=== PATIENT | female | born 1985 | race Caucasian/White ===

== ENCOUNTER 2021-04-13 20:19 | Emergency (ER) | payer MEDICAID, OTHER ==
[~2021-04-13] VITALS: Ht 175.2 cm; Wt 113.3 kg
[2021-04-13 21:04] LABS: BASOPHILS # (AUTO) 0.1 10^3/uL (0.0-0.1); BASOPHILS % (AUTO) 1 % (0-10); EOSINOPHILS # (AUTO) 0.4 10^3/uL (0.0-0.3); EOSINOPHILS % (AUTO) 4 % (0-10); HEMATOCRIT 38 % (35-52); HEMOGLOBIN 12.9 g/dL (11.5-16.0); LYMPHOCYTES % (AUTO) 31 % (12-44); MEAN CORPUSCULAR HEMOGLOBIN 32 pg (25-34); MEAN CORPUSCULAR HGB CONC 34 g/dL (32-36); MEAN CORPUSCULAR VOLUME 92 fL (80-99); MEAN PLATELET VOLUME 10.2 fL (9.0-12.2); MONOCYTES # (AUTO) 0.5 10^3/uL (0.0-1.0); MONOCYTES % (AUTO) 6 % (0-12); NEUTROPHILS # (AUTO) 5.6 10^3/uL (1.8-7.8); NEUTROPHILS % (AUTO) 58 % (42-75); PLATELET COUNT 248 10^3/uL (130-400); WHITE BLOOD COUNT 9.7 10^3/uL (4.3-11.0)
--- NOTE | 2021-04-13 21:21 | Diagnostic Imaging Report ---
EXAM: chest 1 view, AP/PA only. INDICATION: Shortness of breath. COMPARISON: Chest radiograph 06/05/2018. FINDINGS: Normal heart size and pulmonary vascularity. No dense consolidation, pleural effusion or pneumothorax. No acute osseous findings. IMPRESSION: Negative chest. Dictated by: Dictated on workstation # [id number]
[2021-04-13 21:24] LABS: ALANINE AMINOTRANSFERASE 40 U/L (0-55); ALBUMIN 4.1 GM/DL (3.2-4.5); ALKALINE PHOSPHATASE 154 U/L (40-136); BILIRUBIN,TOTAL 0.6 MG/DL (0.1-1.0); BUN/CREATININE RATIO 11; CALCIUM 9.4 MG/DL (8.5-10.1); CARBON DIOXIDE 25 MMOL/L (21-32); CHLORIDE 102 MMOL/L (98-107); CREATININE SERUM 0.79 MG/DL (0.60-1.30); GFR ESTIMATED > 60; GLUCOSE 102 MG/DL (70-105); POTASSIUM 3.2 MMOL/L (3.6-5.0); SODIUM 137 MMOL/L (135-145); TOTAL PROTEIN 7.5 GM/DL (6.4-8.2)
--- NOTE | 2021-04-13 21:26 | ED Cough/URI ---
General Chief Complaint: Cough/Cold/Flu Symptoms Stated Complaint: COUGH, CHILLS, SORE THROAT, HEADACHE Nursing Triage Note: HAD LAST COVID VACCINATION ON APRIL 04, DEVELOPED A "BASEBALL SIZED REDDEND, HARD AREA" WHERE THE SHOT WAS ADMINISTERED. SAUGHT TREATMENT FOR THE SECONDARY S/SX OF THE COVID VACCINE AND WAS PUT ON BACTRIM AND ENCOURAGED TO USE TYLENOL AND IBUPROFEN FOR BODY ACHES/PAIN. TODAY PATIENT STATES SHE IS JUST FEELING WORSE AND CPMTOMUES TP BE SHORT OF BREATH WITH ACTIVITY. SHE DENIES FEVERS OR CHILLS. Sepsis Screen: No Definite Risk Source: patient Exam Limitations: no limitations History of Present Illness Date Seen by Provider: Apr 13, 2021 Time Seen by Provider: 21:00 Initial Comments To ER with reports of a cough chills sore throat headache since receiving her second Covid vaccine 8 days ago. She had a significant erythematous nodule to the left deltoid where the vaccine was injected afterwards so she was placed on Bactrim. Timing/Duration: constant Severity/Quality: moderate Associated Symptoms: cough, shortness of breath Allergies and Home Medications Allergies Coded Allergies: cefaclor (Verified Allergy, Unknown, 04/13/21) cinnamon (Verified Allergy, Unknown, 04/13/21) levofloxacin (Verified Allergy, Unknown, 04/13/21) varenicline (Verified Allergy, Unknown, 04/13/21) Patient Home Medication List Home Medication List Reviewed: Yes Review of Systems Review of Systems Constitutional: see HPI EENTM: see HPI Respiratory: no symptoms reported Cardiovascular: no symptoms reported Genitourinary: no symptoms reported Musculoskeletal: no symptoms reported Skin: no symptoms reported Psychiatric/Neurological: No Symptoms Reported Hematologic/Lymphatic: No Symptoms Reported Past Dozbuqu-Lyaeji-Jjtavf Hx Patient Social History Alcohol Use: Denies Use Type Used: Cigarettes Recent Infectious Disease Expo: No Recent Hopitalizations: No Immunizations Up To Date Tetanus Booster (TDap): Less than 5yrs PED Vaccines UTD: Yes Seasonal Allergies Seasonal Allergies: No Past Medical History Surgeries: Yes (CARPEL TUNNEL R WRIST, SPINE X3, LUNG SCRAPPED /C FLUID REMOVED.) Appendectomy, Gallbladder, Hysterectomy, Orthopedic, Tubal Ligation Respiratory: Yes Asthma Currently Using CPAP: No Currently Using BIPAP: No Cardiac: No Neurological: No : No [employer] History: Hysterectomy, Tubal Ligation Genitourinary: No Gastrointestinal: No Musculoskeletal: Yes Degenerate Disk Disease, Chronic Back Pain Hypothyroidsim HEENT: No Cancer: No Psychosocial: Yes Anxiety, PTSD, Depression Blood Disorders: No Physical Exam Vital Signs - First Documented 04/13/21 20:35 Temp 36.9 Pulse 120 Resp 20 B/P (MAP) 159/97 (117) Pulse Ox 99 O2 Delivery Room Air Capillary Refill : Less Than 3 Seconds Height: '" Weight: lbs. oz. kg; 36.00 BMI Method: General Appearance: WD/WN, no apparent distress Eyes: Bilateral Eye Normal Inspection, Bilateral Eye PERRL, Bilateral Eye EOMI Neck: non-tender, full range of motion Respiratory: normal breath sounds, no respiratory distress, no accessory muscle use Cardiovascular: no murmur, tachycardia Gastrointestinal: normal bowel sounds, non tender, soft Neurologic/Psychiatric: alert, normal mood/affect Skin: normal color, warm/dry Progress/Results/Core Measures Suspected Sepsis Recent Fever Within 48 Hours: No Infection Criteria Present: None New/Unexplained Altered Menta: No Sepsis Screen: No Definite Risk SIRS Temperature: Pulse: 120 Respiratory Rate: 20 Laboratory Tests 04/13/21 20:54: White Blood Count 9.7 Blood Pressure 159 /97 Mean: 117 Laboratory Tests 04/13/21 20:54: Creatinine 0.79, Platelet Count 248, Total Bilirubin 0.6 Results/Orders Lab Results Laboratory Tests Test 04/13/21 20:45 04/13/21 20:54 Range/Units Influenza Type A (RT-PCR) Not Detected Not Detecte Influenza Type B (RT-PCR) Not Detected Not Detecte SARS-CoV-2 RNA (RT-PCR) Not Detected Not Detecte White Blood Count 9.7 4.3-11.0 10^3/uL Red Blood Count 4.10 3.80-5.11 10^6/uL Hemoglobin 12.9 11.5-16.0 g/dL Hematocrit 38 35-52 % Mean Corpuscular Volume 92 80-99 fL Mean Corpuscular Hemoglobin 32 25-34 pg Mean Corpuscular Hemoglobin Concent 34 32-36 g/dL Red Cell Distribution Width 11.9 10.0-14.5 % Platelet Count 248 130-400 10^3/uL Mean Platelet Volume 10.2 9.0-12.2 fL Immature Granulocyte % (Auto) 0 % Neutrophils (%) (Auto) 58 42-75 % Lymphocytes (%) (Auto) 31 12-44 % Monocytes (%) (Auto) 6 0-12 % Eosinophils (%) (Auto) 4 0-10 % Basophils (%) (Auto) 1 0-10 % Neutrophils # (Auto) 5.6 1.8-7.8 10^3/uL Lymphocytes # (Auto) 3.0 1.0-4.0 10^3/uL Monocytes # (Auto) 0.5 0.0-1.0 10^3/uL Eosinophils # (Auto) 0.4 H 0.0-0.3 10^3/uL Basophils # (Auto) 0.1 0.0-0.1 10^3/uL Immature Granulocyte # (Auto) 0.0 0.0-0.1 10^3/uL D-Dimer < 0.27 0.00-0.49 UG/ML Sodium Level 137 135-145 MMOL/L Potassium Level 3.2 L 3.6-5.0 MMOL/L Chloride Level 102 98-107 MMOL/L Carbon Dioxide Level 25 21-32 MMOL/L Anion Gap 10 5-14 MMOL/L Blood Urea Nitrogen 9 7-18 MG/DL Creatinine 0.79 0.60-1.30 MG/DL Estimat Glomerular Filtration Rate > 60 BUN/Creatinine Ratio 11 Glucose Level 102 70-105 MG/DL Calcium Level 9.4 8.5-10.1 MG/DL Corrected Calcium 9.3 8.5-10.1 MG/DL Total Bilirubin 0.6 0.1-1.0 MG/DL Aspartate Amino Transf (AST/SGOT) 92 H 5-34 U/L Alanine Aminotransferase (ALT/SGPT) 40 0-55 U/L Alkaline Phosphatase 154 H 40-136 U/L C-Reactive Protein High Sensitivity 0.91 H 0.00-0.50 MG/DL Total Protein 7.5 6.4-8.2 GM/DL Albumin 4.1 3.2-4.5 GM/DL My Orders Orders - SCOTT LAND APRN Covid 19 Inhouse Test (04/13/21 20:29) Influenza A And B By Pcr (04/13/21 20:29) Fibrin Degradation Products (04/13/21 20:57) Procalcitonin (Pct) (04/13/21 20:57) Chest 1 View, Ap/Pa Only (04/13/21 20:57) Cbc With Automated Diff (04/13/21 20:57) Comprehensive Metabolic Panel (04/13/21 20:57) Hs C Reactive Protein (04/13/21 20:57) Ed Iv/Invasive Line Start (04/13/21 20:57) Ns Iv 1000 Ml (Sodium Chloride 0.9%) (04/13/21 21:30) Vital Signs/I&O 04/13/21 04/13/21 20:35 20:35 Temp 36.9 Pulse 120 Resp 20 B/P (MAP) 159/97 (117) Pulse Ox 99 O2 Delivery Room Air Room Air Capillary Refill : Less Than 3 Seconds Blood Pressure Mean: 117 Departure Impression Primary Impression: Vaccine reaction Disposition: 01 HOME, SELF-CARE Condition: Stable Departure-Patient Inst. Decision time for Depature: 21:28 Patient Instructions: NO INSTRUCTIONS GIVEN Work/School Note: Work Release Form Date Seen in the Emergency Department: Apr 13, 2021 Return to Work: Apr 15, 2021 SCOTT LAND APRN Apr 13, 2021 21:26
[2021-04-13] MEDS ORDERED: NS IV 1000 ML 1,000 ML IV SCH (21:30)
[2021-04-13 22:09] VITALS: BP 136/81
== END 2021-04-13 22:09 | disposition home or self-care (01) ==
LOC: ER 20:24
DX: R05 Cough (principal); T50.Z95A Adverse effect of other vaccines and biological substances, initial encounter; J45.909 Unspecified asthma, uncomplicated; Z88.1 Allergy status to other antibiotic agents; Z20.822 Contact with and (suspected) exposure to COVID-19
CPT/HCPCS: 36415; 71045; 80053; 84145; 85025; 85379; 86141; 87636